=== PATIENT | male | born 1980 | race Caucasian/White ===

== ENCOUNTER 2017-07-30 13:21 | Observation (INO) | payer BC ==
[2017-07-30 17:08] VITALS: BP 149/77; PULSE 83; RESP 20; TEMP 98.6; O2SAT 97
[2017-07-30] MEDS ORDERED: ONDANSETRON ODT 4 MG TAB PO PRN (17:15)
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
[2017-07-30] MEDS ORDERED: cloNIDine HCL 0.1 MG TAB PO PRN (17:45)
[2017-07-30 18:25] LABS: TROPONIN I LESS THAN 0.02 NG/ML (0.02-0.05)
[2017-07-30 18:54] VITALS: PULSE 96
[2017-07-30] MEDS: PANTOPRAZOLE SOD 40 MG DELAYED RELEASE TAB PO SCH (19:18)
[2017-07-30 19:37] VITALS: BP 148/76; PULSE 86; RESP 18; TEMP 98.4; O2SAT 97
[2017-07-30 20:15] VITALS: PULSE 86
[2017-07-31 00:10] VITALS: PULSE 73
[2017-07-31 00:18] VITALS: BP 146/88; PULSE 74; RESP 18; TEMP 98.5; O2SAT 96
[2017-07-31 03:36] VITALS: BP 146/78; PULSE 78; RESP 18; TEMP 98.4; O2SAT 96
[2017-07-31 03:43] VITALS: PULSE 85
[2017-07-31] MEDS: PANTOPRAZOLE SOD 40 MG DELAYED RELEASE TAB PO SCH (07:49)
[2017-07-31] MEDS ORDERED: ASPIRIN 325 MG TAB PO SCH (09:00)
[2017-07-31 09:46] VITALS: BP 142/79; PULSE 96; RESP 18; TEMP 98.4; O2SAT 94
--- NOTE | 2017-07-31 10:29 | TR ---
Date Performed: 07/31/2017 Time Performed: 08:49:04 DOCTOR: Phuc Chao DRUG LIST: CLINICAL HISTORY: REASON FOR TEST: CHEST PAIN REASON FOR ENDING: OBSERVATION: CONCLUSION: HANG PROTOCOL. NO CP. TEST STOPPED AFTER EXCEEDING GOAL HR SECONDARY TO SOB AND LE G FATIGUE.Maximum YY=016 % Max HR Achieved=91.0% Maximum QE=414/54 Total Exercise Time=6:31 COMMENTS: Conclusion: Normal treadmill exercise. No evidence of ischemia.
--- NOTE | 2017-07-31 10:58 | HHI.DCPOC ---
Discharge Care Plan Diagnosis: (1) Chest pain (2) Obesity Goals to Promote Your Health * To prevent worsening of your condition and complications * To maintain your health at the optimal level Directions to Meet Your Goals Take your medications as prescribed Follow your dietary instruction Follow activity as directed Keep your appointments as scheduled Take your immunizations and boosters as scheduled If your symptoms worsen call your PCP, if no PCP go to Urgent Care Center or Emergency Room Smoking is Dangerous to Your Health. Avoid second hand smoke Call the 24-hour hour crisis hotline for domestic abuse at Richard Funes July 31, 2017 10:58
--- NOTE | 2017-07-31 15:15 | EKG ---
Date Performed: 07/30/2017 Time Performed: 17:16:30 PTAGE: 36 years EKG: Sinus rhythm NORMAL ECG NO PREVIOUS TRACING DOCTOR: Phuc Chao Interpretating Date/Time 07/31/2017 15:13:37
== END 2017-07-31 11:40 | disposition home or self-care (01) ==
LOC: NEDDLT 13:21 → NEPGCP 16:50
DX: R07.89 Other chest pain (principal); E66.9 Obesity, unspecified; R20.0 Anesthesia of skin; R42 Dizziness and giddiness; R12 Heartburn; R06.02 Shortness of breath
CPT/HCPCS: 70450; 71046; 80053; 82550; 82552; 83735; 84484; 85025; 85379; 85610; 85730; 93005; 93017; 99285; G0378